=== PATIENT | female | born 1985 | race African-American/Black ===

== ENCOUNTER 2022-08-17 08:38 | Emergency (ER) | payer MEDICAID, OTHER ==
[~2022-08-17] VITALS: Ht 162.6 cm; Wt 95.0 kg
[2022-08-17 08:59] VITALS: BP 109/88
[2022-08-17] MEDS ORDERED: OFLO5DRO3 LEFTEYE (09:26)
== END 2022-08-17 09:30 | disposition home or self-care (01) ==
LOC: ER 08:45
DX: H10.9 Unspecified conjunctivitis (principal); J45.909 Unspecified asthma, uncomplicated
CPT/HCPCS: 99283